=== PATIENT | female | born 1975 | race Two or more races ===

== ENCOUNTER 2024-10-25 08:30 | Outpatient (AMB) | payer BC, SELFPAY ==
[2024-10-25 08:50] VITALS: BP 130/87; PULSE 76; RESP 18; TEMP 36.6; O2SAT 100; BMI 40.4
--- NOTE | 2024-10-25 08:50 | ORTHONT_ITS ---
Vital signs 10/25/24 08:50 Height 1.57 m Height Method Stated Weight 99.564 kg Weight Measurement Method Standing Scale BMI 40.4 BP 130/87 H Blood Pressure Source Automatic Cuff Blood Pressure Location Left Upper Arm Position Sitting Respiration 18 Pulse 76 Pulse Source Monitor Temp 97.8 F Temp Source Temporal Artery Scan Pulse Oximetry (%) 100 Oxygen Delivery Method Room Air Med/Allergies Allergies & Medications Allergies NKA* Allergy (Uncoded 10/25/24 08:51) Medication Reconciliation atorvastatin 40 mg tablet 40 mg PO QDAY 10/09/23 [History Confirmed 10/25/24] meloxicam 7.5 mg tablet 7.5 mg PO BID #45 tabs 10/09/23 [Rx Confirmed 10/25/24] omeprazole 20 mg capsule,delayed release 20 mg PO QDAY 10/09/23 [History Confirmed 10/25/24] meloxicam 7.5 mg tablet 7.5 mg PO QDAY #45 tabs 10/23/23 [Rx Confirmed 10/25/24] meloxicam 7.5 mg tablet 7.5 mg PO QDAY #45 tabs 07/07/24 [Rx Confirmed 10/25/24] Exam Exam Patient is in no acute distress and is cooperative with the examination today. Breathing is nonlabored. Patient has a normal mood and affect. The patient has a gait that is [nonantalgic] Bilateral extremities were evaluated and demonstrates sensation intact to light touch. Palpable pedal pulses are present. No significant edema is present. Bilateral hips were examined. The patient has no pain with log roll of the hips. Internal rotation to 30 degrees and external rotation to 30 degrees is painless. Negative FADIR. Right knee was examined today. The right knee is in reasonable alignment. Range of motion from 0-120 degrees. Knee is stable to varus and valgus as well as AP translation with <5mm. Patient has a negative McMurrays. There is no pain with patellofemoral compression and no crepitus noted. The knee is nontender to palpation. Left knee was examined today. The left knee is in [neutral] alignment. Range of motion from [0-120] degrees. Knee is stable to varus and valgus as well as AP translation with <5mm. Patient has a [negative] McMurrays. There is [no] pain with patellofemoral compression and [no] crepitus noted. The knee is tender to palpation over the Pez anserine tendons An MRI was reviewed by me. This demonstrates a posterior horn of the medial meniscus tear. It appears to be horizontal and degenerative X-rays demonstrate moderate to severe osteoarthritis of the left knee. There is joint space narrowing present Assessment and Plan Problem List (1) Complex tear of meniscus of left knee: Status: Acute Plan: Patient is a 48-year-old female with medial knee pain. We will do a cortisone injection today. We also discussed weight loss Recommend knee cortisone injection as patient would like to proceed with conservative treatment at this time. The risks and benefits of the procedure were reviewed with the patient and patient gave verbal consent to continue with the procedure. Procedure: performed by Dr. Tran Using sterile technique the left knee was thoroughly prepped with alcohol, and approximately 1 cc of Kenalog 40 mg/mL and 4 cc of 1% lidocaine was injected without resistance into the medial tibial femoral joint space. The patient tolerated the procedure. (2) Pain in left knee: Status: Acute Office Procedures GNS Level of Care Nursing/Assessment Patient Status: Established Patient Nursing Assessment/Reassesment: Medication Reconciliation, Update PMH in EMR and Vital Signs Coordination of Care: Complex Care and Chronic Disease 1-5, Education Complex Pt/Fam, Consent,records obtained, informed consent, Results/Orders obtained and Staff clarify orders Established Patient Charge Established Patient Point Assignment: 95 Established Patient Point Charge: EP Level 3 (80-115) MA Intake Visit Data Collection New Patient or Established: Established Patient (seen at [facility] within 3 years) Reason for Visit:: LEFT KNEE INJECTION F/U Seen by Clinical Staff ONLY (RN/MA): No Quality Assurance Group 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 She has a degenerative meniscal tear. We discussed nonoperative and operative options. We discussed weight loss in Detail. The last injections of lasted more than 3 months and she would like a new one today Pain Pain level (0-10): 5 Pain duration: CONSTANT Pain location: inside (medial) Pain quality: aching Pain timing: increases with activity Associated signs & symptoms: none Ambulatory data Ambulatory device: none Treatments Number of previous injections: 1 Improvement with previous injections: Yes Improvement with PT: No Improvement with NSAIDS: no Review of Systems Review of Systems: All systems negative unless otherwise noted in HPI.
== END 2024-10-25 10:17 | disposition home or self-care (01) ==
LOC: HODSRG 08:30
PROVIDERS: PCP Family Medicine; Referring Provider Family Medicine; Supervising Provider Orthopaedic Surgery Adult Reconstructive Orthopaedic Surgery; Visit Provider Orthopaedic Surgery Adult Reconstructive Orthopaedic Surgery
DX: S83.232D Complex tear of medial meniscus, current injury, left knee, subsequent encounter (principal); X58.XXXD Exposure to other specified factors, subsequent encounter; M25.562 Pain in left knee; M17.12 Unilateral primary osteoarthritis, left knee
CPT/HCPCS: 20610; 99213; J3301; J3490; G0463

== ENCOUNTER 2025-01-05 08:43 | Outpatient (AMB) | payer BC, SELFPAY ==
[2025-01-05 09:13] VITALS: BP 155/84; PULSE 90; RESP 18; TEMP 36.8; O2SAT 99; BMI 39.1
--- NOTE | 2025-01-05 09:13 | ORTHONT_ITS ---
Vital signs 01/05/25 09:13 Height 1.57 m Height Method Stated Weight 96.417 kg Weight Measurement Method Standing Scale BMI 39.1 BP 155/84 H Blood Pressure Source Automatic Cuff Blood Pressure Location Right Upper Arm Position Sitting Respiration 18 Pulse 90 Pulse Source Monitor Temp 98.2 F Temp Source Oral Pulse Oximetry (%) 99 Oxygen Delivery Method Room Air Med/Allergies Allergies & Medications Allergies NKA* Allergy (Uncoded 01/05/25 09:14) Medication Reconciliation atorvastatin 40 mg tablet 40 mg PO QDAY 10/09/23 [History Confirmed 01/05/25] meloxicam 7.5 mg tablet 7.5 mg PO BID #45 tabs 10/09/23 [Rx Confirmed 01/05/25] omeprazole 20 mg capsule,delayed release 20 mg PO QDAY 10/09/23 [History Confirmed 01/05/25] meloxicam 7.5 mg tablet 7.5 mg PO QDAY #45 tabs 10/23/23 [Rx Confirmed 01/05/25] meloxicam 7.5 mg tablet 7.5 mg PO QDAY #45 tabs 07/07/24 [Rx Confirmed 01/05/25] bupropion HCl 75 mg tablet 75 mg PO TID 01/05/25 [History Confirmed 01/05/25] naltrexone 50 mg tablet 50 mg PO QDAY 01/05/25 [History Confirmed 01/05/25] naproxen 500 mg tablet 500 mg PO BID PRN pain #60 tabs 01/05/25 [Rx] Exam Exam Patient is in no acute distress and is cooperative with the examination today. Breathing is nonlabored. Patient has a normal mood and affect. The patient has a gait that is [nonantalgic] Bilateral extremities were evaluated and demonstrates sensation intact to light touch. Palpable pedal pulses are present. No significant edema is present. Bilateral hips were examined. The patient has no pain with log roll of the hips. Internal rotation to 30 degrees and external rotation to 30 degrees is painless. Negative FADIR. Right knee was examined today. The right knee is in reasonable alignment. Range of motion from 0-120 degrees. Knee is stable to varus and valgus as well as AP translation with <5mm. Patient has a negative McMurrays. There is no pain with patellofemoral compression and no crepitus noted. The knee is nontender to palpation. Left knee was examined today. The left knee is in [neutral] alignment. Range of motion from [0-120] degrees. Knee is stable to varus and valgus as well as AP translation with <5mm. Patient has a [negative] McMurrays. There is [no] pain with patellofemoral compression and [no] crepitus noted. The knee is tender to palpation over the Pez anserine tendons An MRI was reviewed by me. This demonstrates a posterior horn of the medial meniscus tear. It appears to be horizontal and degenerative X-rays demonstrate moderate to severe osteoarthritis of the left knee. There is joint space narrowing present Assessment and Plan Problem List (1) Complex tear of meniscus of left knee: Status: Acute Plan: Patient is a 49-year-old female with a degenerative meniscal tear and moderate arthritis at least. She also has patella tendinitis. We discussed anti- inflammatories as well as a home exercise program. We also discussed the risks and benefits of surgery. (2) Pain in left knee: Status: Acute Office Procedures GNS Level of Care Nursing/Assessment Patient Status: Established Patient Nursing Assessment/Reassesment: Medication Reconciliation, Update PMH in EMR and Vital Signs Coordination of Care: Complex Care and Chronic Disease 1-5, Education Complex Pt/Fam, Consent,records obtained, informed consent, Results/Orders obtained and Staff clarify orders Established Patient Charge Established Patient Point Assignment: 95 Established Patient Point Charge: EP Level 3 (80-115) MA Intake Visit Data Collection New Patient or Established: Established Patient (seen at [facility] within 3 years) Reason for Visit:: 3 MONTH KNEE INJECTION FOLLOW UP Seen by Clinical Staff ONLY (RN/MA): No Verbal consent obtained for Telemed visit?: No Press Operator Automatic Required: No PCP or OBGYN visit in last 3 months: Yes Hx Now: No Do You Feel Safe at Home: Yes Authorities Contacted: N/A Questionairres Past Medical History Past Medical History Have you ever been diagnosed with any of the following: Respiratory Problems Smoking: No Smoking Cessation Counseling: No Smoking Exposure: No Subjective Visit Visit for: follow up visit and knee Immunization / Flu Flu Vaccine in the Last 12 Months: No Flu Vaccine Exclusion Criteria: No Exclusion Criteria and Already Received History of Present Illness Chief complaint: 3 MONTH FOLLOW UP KNEE INJECTION Pt is a 49-year-old female With left knee pain and left knee arthritis. She has a degenerative meniscal tear. We discussed nonoperative and operative options. We discussed weight loss in Detail. She does not want any injections today. She would like to try different anti-inflammatory we discussed home exercise program versus physical therapy. Pain Pain level (0-10): 6 Pain duration: ALL DAY Pain location: inside (medial), outside (lateral) and anterior Pain quality: sharp, dull and aching Pain timing: increases with activity Associated signs & symptoms: none Ambulatory data Ambulatory device: none Treatments Number of previous injections: 2 Improvement with previous injections: Yes Improvement with PT: No Improvement with NSAIDS: no Review of Systems Review of Systems: All systems negative unless otherwise noted in HPI.
== END 2025-01-05 09:58 | disposition home or self-care (01) ==
LOC: HODSRG 08:43
PROVIDERS: PCP Family Medicine; Referring Provider Family Medicine; Supervising Provider Orthopaedic Surgery Adult Reconstructive Orthopaedic Surgery; Visit Provider Orthopaedic Surgery Adult Reconstructive Orthopaedic Surgery
DX: S83.232D Complex tear of medial meniscus, current injury, left knee, subsequent encounter (principal); X58.XXXD Exposure to other specified factors, subsequent encounter; M17.12 Unilateral primary osteoarthritis, left knee; M25.562 Pain in left knee
CPT/HCPCS: 99213; G0463

== ENCOUNTER 2025-02-24 08:30 | Outpatient (AMB) | payer BC, SELFPAY ==
--- NOTE | 2025-02-24 08:46 | PD.ORTHCLVIS ---
Vital signs 02/24/25 08:47 Height 1.57 m Height Method Stated Weight 94.035 kg Weight Measurement Method Standing Scale BMI 38.1 BP 143/83 H Blood Pressure Source Automatic Cuff Blood Pressure Location Left Upper Arm Position Sitting Respiration 18 Pulse 80 Pulse Source Monitor Temp 95.3 F L Temp Source Temporal Artery Scan Pulse Oximetry (%) 98 Oxygen Delivery Method Room Air Med/Allergies Allergies & Medications Allergies NKA* Allergy (Uncoded 02/24/25 08:50) Medication Reconciliation atorvastatin 40 mg tablet 40 mg PO QDAY 10/09/23 [History Confirmed 02/24/25] meloxicam 7.5 mg tablet 7.5 mg PO BID #45 tabs 10/09/23 [Rx Confirmed 02/24/25] omeprazole 20 mg capsule,delayed release 20 mg PO QDAY 10/09/23 [History Confirmed 02/24/25] meloxicam 7.5 mg tablet 7.5 mg PO QDAY #45 tabs 10/23/23 [Rx Confirmed 02/24/25] meloxicam 7.5 mg tablet 7.5 mg PO QDAY #45 tabs 07/07/24 [Rx Confirmed 02/24/25] bupropion HCl 75 mg tablet 75 mg PO TID 01/05/25 [History Confirmed 02/24/25] naltrexone 50 mg tablet 50 mg PO QDAY 01/05/25 [History Confirmed 02/24/25] naproxen 500 mg tablet 500 mg PO BID PRN pain #60 tabs 01/05/25 [Rx Confirmed 02/24/25] Exam Exam Patient is in no acute distress and is cooperative with the examination today. Breathing is nonlabored. Patient has a normal mood and affect. The patient has a gait that is [nonantalgic] Bilateral extremities were evaluated and demonstrates sensation intact to light touch. Palpable pedal pulses are present. No significant edema is present. Bilateral hips were examined. The patient has no pain with log roll of the hips. Internal rotation to 30 degrees and external rotation to 30 degrees is painless. Negative FADIR. Right knee was examined today. The right knee is in reasonable alignment. Range of motion from 0-120 degrees. Knee is stable to varus and valgus as well as AP translation with <5mm. Patient has a negative McMurrays. There is no pain with patellofemoral compression and no crepitus noted. The knee is nontender to palpation. Left knee was examined today. The left knee is in [neutral] alignment. Range of motion from [0-120] degrees. Knee is stable to varus and valgus as well as AP translation with <5mm. Patient has a [negative] McMurrays. There is [no] pain with patellofemoral compression and [no] crepitus noted. The knee is tender to palpation over the Pez anserine tendons An MRI was reviewed by me. This demonstrates a posterior horn of the medial meniscus tear. It appears to be horizontal and degenerative X-rays demonstrate moderate to severe osteoarthritis of the left knee. There is joint space narrowing present Assessment and Plan Problem List (1) Complex tear of meniscus of left knee: Status: Acute Plan: Patient is a 49-year-old female with a degenerative meniscal tear and Moderate to severe arthritis more prominent on the tunnel view. I discussed with her that there are several options. We discussed total knee replacement versus partial knee replacement as well as hyaluronic acid injections. She is currently getting worked up for her liver. We would need to get authorization for the gel injection but I think this is a reasonable option given that she has tried cortisone and is still looking for other options before surgery (2) Pain in left knee: Status: Acute Office Procedures GNS Level of Care Nursing/Assessment Patient Status: Established Patient Nursing Assessment/Reassesment: Medication Reconciliation, Update PMH in EMR and Vital Signs Coordination of Care: Complex Care and Chronic Disease 1-5, Education Complex Pt/Fam, Consent,records obtained, informed consent, Results/Orders obtained and Staff clarify orders Established Patient Charge Established Patient Point Assignment: 95 Established Patient Point Charge: EP Level 3 (80-115) MA Intake Visit Data Collection New Patient or Established: Established Patient (seen at 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: No PCP or OBGYN visit in last 3 months: Yes Hx Now: No Do You Feel Safe at Home: Yes Authorities Contacted: N/A Questionairres Past Medical History Past Medical History Have you ever been diagnosed with any of the following: Respiratory Problems Smoking: No Smoking Cessation Counseling: No Smoking Exposure: No Subjective Visit Visit for: follow up visit and knee (LEFT KNEE ) Immunization / Flu Flu Vaccine in the Last 12 Months: No Flu Vaccine Exclusion Criteria: Refused by Patient History of Present Illness Chief complaint: 3 MONTH FOLLOW UP KNEE INJECTION Pt is a 49-year-old female With left knee pain and left knee arthritis. She has a degenerative meniscal tear. We discussed nonoperative and operative options. We discussed weight loss in Detail. She does not want any injections today. We have tried to anti-inflammatories and has not provided considerable pain relief Personal History Red flag PMH: none Pain Pain level (0-10): 5 Pain duration: 1 YEAR Pain location: anterior Pain quality: sharp and dull Pain timing: night and increases with activity Associated signs & symptoms: weakness and stiffness Ambulatory data Ambulatory device: none Walking distance (minutes): 1 Treatments Number of previous injections: 4 Improvement with previous injections: No Number of Physical Therapy sessions: 0 Improvement with PT: No Improvement with NSAIDS: n/a Review of Systems Review of Systems: All systems negative unless otherwise noted in HPI.
[2025-02-24 08:47] VITALS: BP 143/83; PULSE 80; RESP 18; TEMP 35.2; O2SAT 98; BMI 38.1
--- NOTE | 2025-02-24 08:58 | XR_ITS ---
Examination: Bilateral knees single view PA lateral axial left knee 3 views TECHNIQUE: Bilateral AP knees standing single view Standing PA left knee flexion, standing lateral left knee, axial left knee 3 views total 4 views Date and time: February 24, 2025 at 0915 hours INDICATIONS: Knee pain one year. FINDINGS: Moderate osteopenia. Moderate narrowing medial joint space left knee No patellar dislocation No fracture Mild to moderate narrowing medial joint space right knee IMPRESSION: Moderate narrowing medial joint space left knee
== END 2025-02-24 09:33 | disposition home or self-care (01) ==
LOC: HODSRG 08:30
PROVIDERS: PCP Family Medicine; Referring Provider Family Medicine; Supervising Provider Orthopaedic Surgery Adult Reconstructive Orthopaedic Surgery; Visit Provider Orthopaedic Surgery Adult Reconstructive Orthopaedic Surgery
DX: S83.207D Unspecified tear of unspecified meniscus, current injury, left knee, subsequent encounter (principal); X58.XXXD Exposure to other specified factors, subsequent encounter; M17.12 Unilateral primary osteoarthritis, left knee; M25.562 Pain in left knee
CPT/HCPCS: 73564; 99213; G0463

== ENCOUNTER 2025-03-07 13:29 | Outpatient (AMB) | payer BC, SELFPAY ==
[2025-03-07 13:46] VITALS: BP 138/81; PULSE 92; RESP 19; TEMP 36.8; O2SAT 98; BMI 38.9
--- NOTE | 2025-03-07 13:46 | ORTHONT_ITS ---
Vital signs 03/07/25 13:46 Height 1.57 m Height Method Stated Weight 95.878 kg Weight Measurement Method Standing Scale BMI 38.9 BP 138/81 H Blood Pressure Source Automatic Cuff Blood Pressure Location Left Upper Arm Position Sitting Respiration 19 Pulse 92 Pulse Source Monitor Temp 98.3 F Temp Source Temporal Artery Scan Pulse Oximetry (%) 98 Oxygen Delivery Method Room Air Med/Allergies Allergies & Medications Allergies NKA* Allergy (Uncoded 03/07/25 13:46) Medication Reconciliation atorvastatin 40 mg tablet 40 mg PO QDAY 10/09/23 [History Confirmed 03/07/25] omeprazole 20 mg capsule,delayed release 20 mg PO QDAY 10/09/23 [History Confirmed 03/07/25] meloxicam 7.5 mg tablet 7.5 mg PO QDAY #45 tabs 10/23/23 [Rx Confirmed 03/07/25] meloxicam 7.5 mg tablet 7.5 mg PO QDAY #45 tabs 07/07/24 [Rx Confirmed 03/07/25] bupropion HCl 75 mg tablet 75 mg PO TID 01/05/25 [History Confirmed 03/07/25] naltrexone 50 mg tablet 50 mg PO QDAY 01/05/25 [History Confirmed 03/07/25] naproxen 500 mg tablet 500 mg PO BID PRN pain #60 tabs 01/05/25 [Rx Confirmed 03/07/25] Exam Exam Patient is in no acute distress and is cooperative with the examination today. Breathing is nonlabored. Patient has a normal mood and affect. The patient has a gait that is [nonantalgic] Bilateral extremities were evaluated and demonstrates sensation intact to light touch. Palpable pedal pulses are present. No significant edema is present. Bilateral hips were examined. The patient has no pain with log roll of the hips. Internal rotation to 30 degrees and external rotation to 30 degrees is painless. Negative FADIR. Right knee was examined today. The right knee is in reasonable alignment. Range of motion from 0-120 degrees. Knee is stable to varus and valgus as well as AP translation with <5mm. Patient has a negative McMurrays. There is no pain with patellofemoral compression and no crepitus noted. The knee is nontender to palpation. Left knee was examined today. The left knee is in [neutral] alignment. Range of motion from [0-120] degrees. Knee is stable to varus and valgus as well as AP translation with <5mm. Patient has a [negative] McMurrays. There is [no] pain with patellofemoral compression and [no] crepitus noted. The knee is tender to palpation over the Pez anserine tendons An MRI was reviewed by me. This demonstrates a posterior horn of the medial meniscus tear. It appears to be horizontal and degenerative X-rays demonstrate moderate to severe osteoarthritis of the left knee. There is joint space narrowing present Assessment and Plan Problem List (1) Complex tear of meniscus of left knee: Status: Acute Plan: Patient is a 49-year-old female with a degenerative meniscal tear and Moderate to severe arthritis more prominent on the tunnel view. I discussed with her that there are several options. We discussed total knee replacement versus partial knee replacement as well as hyaluronic acid injections. She would like to get a hyaluronic acid injection today After an alcohol prep, the entire syringe of Synvisc 1 was injected into the left knee. The patient tolerated the procedure well. (2) Pain in left knee: Status: Acute Office Procedures GNS Level of Care Nursing/Assessment Patient Status: Established Patient Nursing Assessment/Reassesment: Medication Reconciliation, Update PMH in EMR and Vital Signs Coordination of Care: Complex Care and Chronic Disease 1-5, Education Complex Pt/Fam, Consent,records obtained, informed consent, Results/Orders obtained and Staff clarify orders Established Patient Charge Established Patient Point Assignment: 95 Established Patient Point Charge: EP Level 3 (80-115) Surgical Proc/IM SQ injection Major Surgical Procedure: Yes (KNEE INJECTION ) Medication Given Medication Given Medication Given: Yes Documented Dose Given: 6 Route: Infiitration Office Meds Hyalgan 10 mg/mL intra-articular syringe Performing Provider: Royce Tran MD Performing Location: [facility] Administered by: Royce Tran MD on 03/07/25 15:43 Dose Route Admin Location Dispensed Lot Number Expiration Date [facility] Tacker Off 20 mg intra-articular 2 mL [id number] 02/18/27 [address]-3 MA Intake Visit Data Collection New Patient or Established: Established Patient (seen at [facility] within 3 years) Reason for Visit:: LEFT KNEE FOLLOW UP Seen by Clinical Staff ONLY (RN/MA): No PCP or OBGYN visit in last 3 months: Yes Hx Now: No Do You Feel Safe at Home: Yes Authorities Contacted: N/A Questionairres Past Medical History Past Medical History Have you ever been diagnosed with any of the following: Respiratory Problems Smoking: No Smoking Cessation Counseling: No Smoking Exposure: No Subjective Visit Visit for: follow up visit and knee Immunization / Flu Flu Vaccine in the Last 12 Months: No Flu Vaccine Exclusion Criteria: No Exclusion Criteria History of Present Illness Chief complaint: 3 MONTH FOLLOW UP KNEE INJECTION Pt is a 49-year-old female With left knee pain and left knee arthritis. She has a degenerative meniscal tear. We discussed nonoperative and operative options. We discussed weight loss in Detail. She does not want any injections today. We have tried to anti-inflammatories and has not provided considerable pain relief Personal History Red flag PMH: none Pain Pain level (0-10): 7 Pain duration: CONSTANT Pain location: inside (medial) and anterior Pain quality: sharp, dull and aching Pain timing: night, increases with activity and stairs Associated signs & symptoms: numbness Ambulatory data Ambulatory device: none Walking distance (minutes): 1 Treatments Number of previous injections: 4 Improvement with previous injections: No Number of Physical Therapy sessions: 0 Improvement with PT: No Improvement with NSAIDS: no Review of Systems Review of Systems: All systems negative unless otherwise noted in HPI.
== END 2025-03-07 14:20 | disposition home or self-care (01) ==
PROVIDERS: PCP Family Medicine; Referring Provider Family Medicine; Supervising Provider Orthopaedic Surgery Adult Reconstructive Orthopaedic Surgery; Visit Provider Orthopaedic Surgery Adult Reconstructive Orthopaedic Surgery
DX: S83.232D Complex tear of medial meniscus, current injury, left knee, subsequent encounter (principal); X58.XXXD Exposure to other specified factors, subsequent encounter; M25.562 Pain in left knee; M17.12 Unilateral primary osteoarthritis, left knee
CPT/HCPCS: 20610; 99213; G0463; J7325

== ENCOUNTER 2025-05-09 13:42 | Outpatient (AMB) | payer BC, SELFPAY ==
--- NOTE | 2025-05-09 14:08 | ORTHONT_ITS ---
Vital signs 05/09/25 14:13 Height 1.57 m Height Method Measured Weight 95.368 kg Weight Measurement Method Standing Scale BMI 38.7 BP 129/76 Blood Pressure Source Automatic Cuff Blood Pressure Location Left Upper Arm Position Sitting Respiration 20 Pulse 86 Pulse Source Monitor Temp 98.5 F Temp Source Temporal Artery Scan Pulse Oximetry (%) 97 Oxygen Delivery Method Room Air Med/Allergies Allergies & Medications Allergies NKA* Allergy (Uncoded 05/09/25 14:14) Medication Reconciliation atorvastatin 40 mg tablet 40 mg PO QDAY 10/09/23 [History Confirmed 05/09/25] omeprazole 20 mg capsule,delayed release 20 mg PO QDAY 10/09/23 [History Confirmed 05/09/25] meloxicam 7.5 mg tablet 7.5 mg PO QDAY #45 tabs 10/23/23 [Rx Confirmed 05/09/25] meloxicam 7.5 mg tablet 7.5 mg PO QDAY #45 tabs 07/07/24 [Rx Confirmed 05/09/25] bupropion HCl 75 mg tablet 75 mg PO TID 01/05/25 [History Confirmed 05/09/25] naltrexone 50 mg tablet 50 mg PO QDAY 01/05/25 [History Confirmed 05/09/25] naproxen 500 mg tablet 500 mg PO BID PRN pain #60 tabs 01/05/25 [Rx Confirmed 05/09/25] celecoxib 200 mg capsule 200 mg PO BID #90 caps 05/09/25 [Rx] Exam Exam Patient is in no acute distress and is cooperative with the examination today. Breathing is nonlabored. Patient has a normal mood and affect. The patient has a gait that is [nonantalgic] Bilateral extremities were evaluated and demonstrates sensation intact to light touch. Palpable pedal pulses are present. No significant edema is present. Bilateral hips were examined. The patient has no pain with log roll of the hips. Internal rotation to 30 degrees and external rotation to 30 degrees is painless. Negative FADIR. Right knee was examined today. The right knee is in reasonable alignment. Range of motion from 0-120 degrees. Knee is stable to varus and valgus as well as AP translation with <5mm. Patient has a negative McMurrays. There is no pain with patellofemoral compression and no crepitus noted. The knee is nontender to palpation. Left knee was examined today. The left knee is in [neutral] alignment. Range of motion from [0-120] degrees. Knee is stable to varus and valgus as well as AP translation with <5mm. Patient has a [negative] McMurrays. There is [no] pain with patellofemoral compression and [no] crepitus noted. The knee is tender to palpation over the Pez anserine tendons An MRI was reviewed by me. This demonstrates a posterior horn of the medial meniscus tear. It appears to be horizontal and degenerative X-rays demonstrate moderate to severe osteoarthritis of the left knee. There is joint space narrowing present Assessment and Plan Problem List (1) Pain in left knee: Status: Acute (2) Complex tear of meniscus of left knee: Status: Acute Plan: Patient is a 49-year-old female with a degenerative meniscal tear and Moderate to severe arthritis more prominent on the tunnel view. I discussed with her that there are several options. Recommend knee cortisone injection as patient would like to proceed with conservative treatment at this time. The risks and benefits of the procedure were reviewed with the patient and patient gave verbal consent to continue with the procedure. Procedure: performed by Dr. Tran Using sterile technique the left knee was thoroughly prepped with alcohol, and approximately 1 cc of Depo-Medrol 80mg/mL and 4 cc of 0.2% ropivacaine was injected without resistance into the medial tibial femoral joint space. The patient tolerated the procedure. Office Procedures GNS Level of Care Nursing/Assessment Patient Status: Established Patient Nursing Assessment/Reassesment: Medication Reconciliation, Update PMH in EMR and Vital Signs Coordination of Care: Complex Care and Chronic Disease 1-5, Education Complex Pt/Fam, Consent,records obtained, informed consent, Results/Orders obtained and Staff clarify orders Established Patient Charge Established Patient Point Assignment: 95 Established Patient Point Charge: EP Level 3 (80-115) Surgical Proc/IM SQ injection Major Surgical Procedure: Yes (LERT KNEE INJECTION) Medication Given Medication Given Medication Given: Yes Documented Dose Given: 1 Route: Infiitration Medication Given Medication Given Medication Given: No Medication Given Medication Given Medication Given: Yes Documented Dose Given: 4 Route: Infiitration Medication Given Medication Given Medication Given: No Office Meds methylprednisolone acetate 80 mg/mL suspension for injection Performing Provider: Royce Tran MD Performing Location: [facility] Administered by: Royce Tran MD on 05/09/25 14:50 Dose Route Admin Location Dispensed Lot Number Expiration Date [facility] [employer] 80 mg intra-articular 1 mL [id number] 02/17/27 [address]-6 [employer] methylprednisolone acetate 80 mg/mL suspension for injection Performing Provider: Royce Tran MD Performing Location: [facility] Documented (not given) by: Rubia Viera on 05/09/25 14:50 Dose Route Admin Location Dispensed Lot Number Expiration Date [facility] [employer] 80 mg intra-articular mL ropivacaine (PF) 2 mg/mL (0.2 %) injection solution Performing Provider: Royce Tran MD Performing Location: [facility] Administered by: Royce Tran MD on 05/09/25 14:50 Dose Route Admin Location Dispensed Lot Number Expiration Date [place] [employer] 20 mL Infiltration 20 mL [id number] 08/20/26 86639-925-89 [facility] ropivacaine (PF) 2 mg/mL (0.2 %) injection solution Performing Provider: Royce Tran MD Performing Location: [facility] Documented (not given) by: Rubia Viera on 05/09/25 14:50 Dose Route Admin Location Dispensed Lot Number Expiration Date [facility] [employer] 20 mL Infiltration mL MA Intake Visit Data Collection New Patient or Established: Established Patient (seen at [facility] within 3 years) Reason for Visit:: LEFT KNEE FOLLOW UP Seen by Clinical Staff ONLY (RN/MA): No 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 PCP or OBGYN visit in last 3 months: Yes Hx Now: No Do You Feel Safe at Home: Yes Authorities Contacted: N/A Questionairres Past Medical History Past Medical History Have you ever been diagnosed with any of the following: Respiratory Problems Smoking: No Smoking Cessation Counseling: No Smoking Exposure: No Subjective Visit Visit for: follow up visit and knee Immunization / Flu Flu Vaccine in the Last 12 Months: No Flu Vaccine Exclusion Criteria: No Exclusion Criteria History of Present Illness Chief complaint: 3 MONTH FOLLOW UP KNEE INJECTION Pt is a 49-year-old female With left knee pain and left knee arthritis. She has a degenerative meniscal tear. We discussed nonoperative and operative options. We discussed weight loss in Detail. she would like to try a cortisone injection Personal History Red flag PMH: none Pain Pain level (0-10): 7 Pain duration: CONSTANT Pain location: inside (medial) and anterior Pain quality: sharp, dull and aching Pain timing: night, increases with activity and stairs Associated signs & symptoms: numbness Ambulatory data Ambulatory device: none Walking distance (minutes): 1 Treatments Number of previous injections: 4 Improvement with previous injections: No Number of Physical Therapy sessions: 0 Improvement with PT: No Improvement with NSAIDS: no Review of Systems Review of Systems: All systems negative unless otherwise noted in HPI.
[2025-05-09 14:13] VITALS: BP 129/76; PULSE 86; RESP 20; TEMP 36.9; O2SAT 97; BMI 38.7
== END 2025-05-09 14:57 | disposition home or self-care (01) ==
PROVIDERS: PCP Family Medicine; Referring Provider Family Medicine; Supervising Provider Orthopaedic Surgery Adult Reconstructive Orthopaedic Surgery; Visit Provider Orthopaedic Surgery Adult Reconstructive Orthopaedic Surgery
DX: M25.562 Pain in left knee (principal); S83.204D Other tear of unspecified meniscus, current injury, left knee, subsequent encounter; X58.XXXD Exposure to other specified factors, subsequent encounter; M17.12 Unilateral primary osteoarthritis, left knee
CPT/HCPCS: 20610; 99213; J1010; J2795; G0463

== ENCOUNTER → 2025-05-23 | Outpatient (CLI) | payer BC, SELFPAY ==
--- NOTE | 2025-05-23 13:30 | XR_ITS ---
Examination: Screening digital mammography, bilateral Computer aided detection 3-D breast Tomosynthesis, bilateral Date and time of exam: May 23, 2025 1306 hours, no priors Indication: Screening Technique: Nonmagnified MLO, CC views of the breasts to been obtained, reconstructed from 3-D Tomosynthesis images. R2 computer aided detection program utilized for evaluation of suspicious masses and/or abnormal calcifications. 3-D Tomosynthesis images obtained. Findings: The breasts are heterogeneously dense, which may obscure small masses Bilateral skin lesions Benign calcifications No suspicious masses Impression: BI-RADS category II: Benign Findings. Recommend 1 year follow-up mammogram.
== END | disposition home or self-care (01) ==
PROVIDERS: PCP Family Medicine; Referring Provider Family Medicine; Visit Provider Family Medicine
DX: Z12.31 Encounter for screening mammogram for malignant neoplasm of breast (principal); R92.323 Mammographic fibroglandular density, bilateral breasts; R92.1 Mammographic calcification found on diagnostic imaging of breast
CPT/HCPCS: 77063; 77067

== ENCOUNTER 2025-06-30 09:50 | Day surgery (SDC) | payer BC, SELFPAY ==
[2025-06-29 13:56] VITALS: BMI 38.4
[2025-06-30] VITALS (9 sets, daily range): BP systolic 129–163; BP diastolic 74–93; PULSE 60–78; RESP 12–18; TEMP 36.6–37.2; O2SAT 95–100; BMI 36.7
[2025-06-30] MEDS: SODIUM CHLORIDE 0.9% 500 ML 500 ML 20 ML IV (11:50)
[2025-06-30] MEDS: fentaNYL CIT INJ 50 mCg/ML AMP 2ML (ASD USE ONLY) IVP (12:03)
[2025-06-30] MEDS: MIDAZOLAM INJ 1 MG/ML VIAL 2 ML (ASD USE ONLY) 2 MG IVP (12:03)
== END 2025-06-30 12:40 | disposition home or self-care (01) ==
PROVIDERS: PCP Family Medicine; Referring Provider Specialist; Visit Provider Specialist
PROC: 0DBE8ZX Excision of Large Intestine, Via Natural or Artificial Opening Endoscopic, Diagnostic (ICD-10-PCS; CPT 45380; principal; 2025-06-30 12:30)
DX: Z12.11 Encounter for screening for malignant neoplasm of colon (principal); K64.1 Second degree hemorrhoids; K57.30 Diverticulosis of large intestine without perforation or abscess without bleeding
CPT/HCPCS: 45378; 81025; A4649; J1200; J2250; J3010; J7999

== ENCOUNTER 2025-07-18 10:24 | Outpatient (AMB) | payer BC, SELFPAY ==
--- NOTE | 2025-07-18 10:52 | ORTHONT_ITS ---
Vital signs 07/18/25 10:53 Height 1.57 m Height Method Stated Weight 94.546 kg Weight Measurement Method Standing Scale BMI 38.1 BP 128/81 Blood Pressure Source Automatic Cuff Blood Pressure Location Left Upper Arm Position Sitting Respiration 18 Pulse 85 Pulse Source Monitor Temp 98.1 F Temp Source Temporal Artery Scan Pulse Oximetry (%) 97 Oxygen Delivery Method Room Air Med/Allergies Allergies & Medications Allergies No Known Allergies Allergy (Verified 07/18/25 10:54) Medication Reconciliation omeprazole 20 mg capsule,delayed release 20 mg PO QDAY 10/09/23 [History Confirmed 07/18/25] atorvastatin 20 mg tablet 20 mg PO QDAY 06/29/25 [History Confirmed 07/18/25] Exam Exam Patient is in no acute distress and is cooperative with the examination today. Breathing is nonlabored. Patient has a normal mood and affect. The patient has a gait that is [nonantalgic] Bilateral extremities were evaluated and demonstrates sensation intact to light touch. Palpable pedal pulses are present. No significant edema is present. Bilateral hips were examined. The patient has no pain with log roll of the hips. Internal rotation to 30 degrees and external rotation to 30 degrees is painless. Negative FADIR. Right knee was examined today. The right knee is in reasonable alignment. Range of motion from 0-120 degrees. Knee is stable to varus and valgus as well as AP translation with <5mm. Patient has a negative McMurrays. There is no pain with patellofemoral compression and no crepitus noted. The knee is nontender to palpa tion. Left knee was examined today. The left knee is in [neutral] alignment. Range of motion from [0-120] degrees. Knee is stable to varus and valgus as well as AP translation with <5mm. Patient has a [negative] McMurrays. There is [no] pain with patellofemoral compression and [no] crepitus noted. The knee is tender to palpation over the Pez anserine tendons An MRI was reviewed by me. This demonstrates a posterior horn of the medial meniscus tear. It appears to be horizontal and degenerative X-rays demonstrate moderate to severe osteoarthritis of the left knee. There is joint space narrowing present Assessment and Plan Problem List (1) Pain in left knee: Status: Acute (2) Complex tear of meniscus of left knee: Status: Acute Plan: Patient is a 49-year-old female with a degenerative meniscal tear and Moderate to severe arthritis more prominent on the tunnel view. I discussed with her that there are several options. She has tried multiple injections on the left knee and has failed conservative treatment. We discussed that a total knee replacement is a reasonable option versus a partial knee replacement. We discussed that we can aim for a partial knee replacement but it is possible that she will need a total knee replacement intraoperatively. The risks and benefits of surgery discussed in great detail with the patient Lifestyle modifications, such as weight management, were discussed to support recovery and long-term joint health. The nature and purpose of the partial versus total knee replacement, alternative method(s) of treatment, the material risks involved, and the possibility of complications were fully explained to the patient. The patient does NOT have any of the following contraindications to a partial or total knee arthroplasty: - Active infection of the knee joint, OR - Active systemic bacteremia, OR - Active skin infection or open wound at surgical site, OR - Neuropathic arthritis, OR - Severe, rapidly progressive neurological disease, OR - Severe medical condition that makes risks of surgery outweigh the potential benefit The patient was told the most common risks and complications associated with a total knee replacement include, but are not limited to: blood clots in the leg, fatal pulmonary embolism, dislocation of the prosthesis, intraoperative and postoperative fractures of the femur or tibia, infection, failure of the prosthesis or grafting materials, complications from anesthesia, reactions to blood transfusions, postoperative leg length inequality, instability of the knee replacement, nerve damage or injury, vascular injury, delayed wound healing, infection, other injury or even . In addition, there are risks associated with anesthesia given during this operation. Also, the patient was told that after undergoing a total knee replacement there may still be persistent pain or disability. The patient was informed that the success of this operation in part depends upon the mechanical devices which are going to be implanted and that these devices can fail or malfunction, and may need to be repaired or replaced and there are no guarantees as to the longevity of this device or its parts and that it or its parts could fail prematurely. The patient was also notified that during the course of surgery, there may be a need to use bone graft from donors, and that any bone graft used will be carefully screened for communicable diseases, including AIDS, hepatitis, Jeremiah-Creutzfeldt, or other diseases, but despite the screening procedures, there is a small chance that they could contract one of these diseases. Finally, the patient was asked to follow completely and fully with all advice and recommended treatments, and that recovery and ultimate outcome are affected by their compliance with recommended treatment. We discussed the risks, benefits and treatment alternatives, and the patient is interested in proceeding with surgery. We will try to set this up as expeditiously as possible. Office Procedures GNS Level of Care Nursing/Assessment Patient Status: Established Patient Nursing Assessment/Reassesment: Medication Reconciliation, Update PMH in EMR and Vital Signs Coordination of Care: Complex Care and Chronic Disease 1-5, Education Complex Pt/Fam, Consent,records obtained, informed consent, Results/Orders obtained and Staff clarify orders Established Patient Charge Established Patient Point Assignment: 95 Established Patient Point Charge: EP Level 3 (80-115) MA Intake Visit Data Collection New Patient or Established: Established Patient (seen at [facility] within 3 years) Reason for Visit:: LEFT KNEE PAIN REQ SX Seen by Clinical Staff ONLY (RN/MA): No 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: No PCP or OBGYN visit in last 3 months: Yes Hx Now: No Do You Feel Safe at Home: Yes Authorities Contacted: N/A Questionairres Past Medical History Past Medical History Have you ever been diagnosed with any of the following: Neurological Problems Seizures: No Cardiology Problems Congestive Heart Failure: No Hypertension: Yes Respiratory Problems Chronic Obstructive Pulmonary Disease (COPD): No Smoking: No Smoking Cessation Counseling: No Smoking Exposure: No Stomache/Intestinal Problems Gastroesophageal Reflux Disease: Yes Genital/Urinary Problems Renal Disease: No Endocrine Problems Diabetes Mellitus Type 1: No Diabetes Mellitus Type 2: Yes Other Problems Down Syndrome: No Developmental Delay: No Blood Transfusions: No Anesthesia Reactions: No Subjective Visit Visit for: follow up visit and knee (LEFT) Immunization / Flu Flu Vaccine in the Last 12 Months: No Flu Vaccine Exclusion Criteria: No Exclusion Criteria History of Present Illness Chief complaint: 3 MTH L KNEE INJECTION FU REQ SX Freda is a 49-year-old female who is been treated for cervical medial compartment arthritis for quite a time. She has been experiencing persistent pain in her left knee, which she describes as being localized to the inner aspect. Occasionally, she experiences sharp, stabbing pains in the lower part of her leg, which can radiate upwards, causing discomfort throughout her entire leg. She also reports that her right leg has begun to ache, possibly due to compensatory weight-bearing. Despite undergoing numerous treatments, including gel injections, physical therapy sessions, and various medications, her condition has not improved. She expresses a desire to resume an active lifestyle, including playing golf with her . She recalls a recent trip to [place] in 10/2024, during which she experienced significant knee pain after climbing to the top of a castle, which subsequently hindered her ability to walk for the remainder of the trip. She is concerned about her upcoming trip to [place] and her ability to participate in planned activities. Her family has suggested surgical intervention as a potential solution to restore her mobility. Personal History Red flag PMH: none Pain Pain level (0-10): 7 Pain duration: CONSTANT Pain location: inside (medial) and anterior Pain quality: sharp, dull and aching Pain timing: night, increases with activity and stairs Associated signs & symptoms: numbness Ambulatory data Ambulatory device: none Walking distance (minutes): 1 Treatments Number of previous injections: 4 Improvement with previous injections: No Number of Physical Therapy sessions: 0 Improvement with PT: No Improvement with NSAIDS: no Review of Systems Review of Systems: All systems negative unless otherwise noted in HPI.
[2025-07-18 10:53] VITALS: BP 128/81; PULSE 85; RESP 18; TEMP 36.7; O2SAT 97; BMI 38.1
== END 2025-07-18 11:15 | disposition home or self-care (01) ==
PROVIDERS: PCP Family Medicine; Referring Provider Family Medicine; Supervising Provider Orthopaedic Surgery Adult Reconstructive Orthopaedic Surgery; Visit Provider Orthopaedic Surgery Adult Reconstructive Orthopaedic Surgery
DX: M25.562 Pain in left knee (principal); S83.207D Unspecified tear of unspecified meniscus, current injury, left knee, subsequent encounter; X58.XXXD Exposure to other specified factors, subsequent encounter; I10 Essential (primary) hypertension
CPT/HCPCS: 99213; G0463

== ENCOUNTER → 2025-07-18 | Outpatient (CLI) | payer BC, SELFPAY ==
--- NOTE | 2025-07-18 14:14 | EKG_ITS ---
[facility] Test Date: 2025-07-18 Pat Name: YANI CHARLES Department: Room: - Gender: Female Composition Mixer: [id number] : [id number] Requested By: Rai Mccall Order Number: [id number] Reading MD: Rai Mccall Measurements Intervals Cadet Rate: 70 P: 32 VA: 139 QRS: 33 QRSD: 77 T: 34 QT: 402 QTc: 436 Interpretive Statements SINUS RHYTHM MODERATE T-WAVE ABNORMALITY, CONSIDER ANTERIOR ISCHEMIA [-0.1+ mV T WAVE IN V3/V4] No previous ECG available for comparison /store/S0/[id number].pdf
== END | disposition home or self-care (01) ==
LOC: SEKG 14:01
PROVIDERS: PCP Family Medicine; Referring Provider Family Medicine; Visit Provider Family Medicine
DX: Z01.810 Encounter for preprocedural cardiovascular examination (principal); M25.562 Pain in left knee
CPT/HCPCS: 93005

== ENCOUNTER → 2025-08-08 | Outpatient (CLI) | payer BC, SELFPAY ==
--- NOTE | 2025-08-08 15:56 | XR_ITS ---
Examination: CT left lower extremity, without contrast. 2-D sagittal reconstructions. 2-D coronal reconstructions. 3-D reconstructions. Date and time of exam: August 08, 2025, 1544 hours INDICATIONS: Diagnosis primary unilateral osteoarthritis left knee left knee pain 2 years CTDI: vol (mGy): 13.3 DLP: (mGycm): 1005 Technique: Multiple 1.25 mm axial sections of the left lower extremity without intravenous contrast have been obtained. 2-D sagittal and coronal reconstructions have been obtained. 3-D reconstructions have been obtained. Low dose protocols were performed. One or more of the following dose reduction techniques were used; automated exposure control, adjustment of the mA and/or KV according to patient size, use of iterative reconstruction technique. Findings: Moderate osteopenia Mild to moderate narrowing left hip joint No left hip fracture or dislocation Moderate to advanced narrowing medial joint space left knee Moderate narrowing lateral patellofemoral joint No fracture or patellar dislocation No avascular necrosis IMPRESSION: Moderate to advanced narrowing medial joint space left knee Moderate narrowing lateral patellofemoral joint left knee
== END | disposition home or self-care (01) ==
PROVIDERS: PCP Family Medicine; Referring Provider Orthopaedic Surgery Adult Reconstructive Orthopaedic Surgery; Visit Provider Orthopaedic Surgery Adult Reconstructive Orthopaedic Surgery
DX: M25.862 Other specified joint disorders, left knee (principal)
CPT/HCPCS: 73700

== ENCOUNTER 2025-09-12 12:58 | Outpatient (AMB) | payer BC, SELFPAY ==
--- NOTE | 2025-09-12 13:16 | PD.ORTHCLVIS ---
Med/Allergies Allergies & Medications Allergies No Known Allergies Allergy (Verified 07/18/25 10:54) Exam Exam Patient is in no acute distress and is cooperative with the examination today. Breathing is nonlabored. Patient has a normal mood and affect. The patient has a gait that is [nonantalgic] Bilateral extremities were evaluated and demonstrates sensation intact to light touch. Palpable pedal pulses are present. No significant edema is present. Bilateral hips were examined. The patient has no pain with log roll of the hips. Internal rotation to 30 degrees and external rotation to 30 degrees is painless. Negative FADIR. Right knee was examined today. The right knee is in reasonable alignment. Range of motion from 0-120 degrees. Knee is stable to varus and valgus as well as AP translation with <5mm. Patient has a negative McMurrays. There is no pain with patellofemoral compression and no crepitus noted. The knee is nontender to palpation. Left knee was examined today. The left knee is in [neutral] alignment. Range of motion from [0-120] degrees. Knee is stable to varus and valgus as well as AP translation with <5mm. Patient has a [negative] McMurrays. There is [no] pain with patellofemoral compression and [no] crepitus noted. The knee is tender to palpation over the Pez anserine tendons An MRI was reviewed by me. This demonstrates a posterior horn of the medial meniscus tear. It appears to be horizontal and degenerative X-rays demonstrate moderate to severe osteoarthritis of the left knee. There is joint space narrowing present Assessment and Plan Problem List (1) Pain in left knee: Status: Acute (2) Complex tear of meniscus of left knee: Status: Acute Plan: Patient is a 50-year-old female with a degenerative meniscal tear and Moderate to severe medial arthritis more prominent on the tunnel view. I discussed with her that there are several options. She has tried multiple injections on the left knee and has failed conservative treatment. We discussed that a total knee replacement is a reasonable option versus a partial knee replacement. We discussed that we can aim for a partial knee replacement but it is possible that she will need a total knee replacement intraoperatively. The risks and benefits of surgery discussed in great detail with the patient Lifestyle modifications, such as weight management, were discussed to support recovery and long-term joint health. The nature and purpose of the partial versus total knee replacement, alternative method(s) of treatment, the material risks involved, and the possibility of complications were fully explained to the patient. The patient does NOT have any of the following contraindications to a partial or total knee arthroplasty: - Active infection of the knee joint, OR - Active systemic bacteremia, OR - Active skin infection or open wound at surgical site, OR - Neuropathic arthritis, OR - Severe, rapidly progressive neurological disease, OR - Severe medical condition that makes risks of surgery outweigh the potential benefit The patient was told the most common risks and complications associated with a total knee replacement include, but are not limited to: blood clots in the leg, fatal pulmonary embolism, dislocation of the prosthesis, intraoperative and postoperative fractures of the femur or tibia, infection, failure of the prosthesis or grafting materials, complications from anesthesia, reactions to blood transfusions, postoperative leg length inequality, instability of the knee replacement, nerve damage or injury, vascular injury, delayed wound healing, infection, other injury or even . In addition, there are risks associated with anesthesia given during this operation. Also, the patient was told that after undergoing a total knee replacement there may still be persistent pain or disability. The patient was informed that the success of this operation in part depends upon the mechanical devices which are going to be implanted and that these devices can fail or malfunction, and may need to be repaired or replaced and there are no guarantees as to the longevity of this device or its parts and that it or its parts could fail prematurely. The patient was also notified that during the course of surgery, there may be a need to use bone graft from donors, and that any bone graft used will be carefully screened for communicable diseases, including AIDS, hepatitis, Jeremiah-Creutzfeldt, or other diseases, but despite the screening procedures, there is a small chance that they could contract one of these diseases. Finally, the patient was asked to follow completely and fully with all advice and recommended treatments, and that recovery and ultimate outcome are affected by their compliance with recommended treatment. We discussed the risks, benefits and treatment alternatives, and the patient is interested in proceeding with surgery. We will try to set this up as expeditiously as possible. Questionairres Past Medical History Past Medical History Have you ever been diagnosed with any of the following: Neurological Problems Seizures: No Cardiology Problems Congestive Heart Failure: No Hypertension: Yes Respiratory Problems Chronic Obstructive Pulmonary Disease (COPD): No Smoking: No Smoking Cessation Counseling: No Smoking Exposure: No Stomache/Intestinal Problems Gastroesophageal Reflux Disease: Yes Genital/Urinary Problems Renal Disease: No Endocrine Problems Diabetes Mellitus Type 1: No Diabetes Mellitus Type 2: Yes Other Problems Down Syndrome: No Developmental Delay: No Blood Transfusions: No Anesthesia Reactions: No Subjective Visit Visit for: follow up visit and knee (LEFT) Immunization / Flu Flu Vaccine in the Last 12 Months: No Flu Vaccine Exclusion Criteria: No Exclusion Criteria History of Present Illness Chief complaint: 3 MTH L KNEE INJECTION FU REQ TrishX Freda is a 49-year-old female who is been treated for cervical medial compartment arthritis for quite a time. She has been experiencing persistent pain in her left knee, which she describes as being localized to the inner aspect. Occasionally, she experiences sharp, stabbing pains in the lower part of her leg, which can radiate upwards, causing discomfort throughout her entire leg. She also reports that her right leg has begun to ache, possibly due to compensatory weight-bearing. Despite undergoing numerous treatments, including gel injections, physical therapy sessions, and various medications, her condition has not improved. She expresses a desire to resume an active lifestyle, including playing golf with her . She recalls a recent trip to [place] in 10/2024, during which she experienced significant knee pain after climbing to the top of a [place], which subsequently hindered her ability to walk for the remainder of the trip. She is concerned about her upcoming trip to [place] and her ability to participate in planned activities. Her family has suggested surgical intervention as a potential solution to restore her mobility. Personal History Red flag PMH: none Pain Pain level (0-10): 7 Pain duration: CONSTANT Pain location: inside (medial) and anterior Pain quality: sharp, dull and aching Pain timing: night, increases with activity and stairs Associated signs & symptoms: numbness Ambulatory data Ambulatory device: none Walking distance (minutes): 1 Treatments Number of previous injections: 4 Improvement with previous injections: No Number of Physical Therapy sessions: 0 Improvement with PT: No Improvement with NSAIDS: no Review of Systems Review of Systems: All systems negative unless otherwise noted in HPI.
[2025-09-12 13:24] VITALS: BP 138/70; PULSE 98; RESP 18; TEMP 36.8; O2SAT 98; BMI 38.3
== END 2025-09-12 13:20 | disposition home or self-care (01) ==
LOC: HODSRG 12:58
PROVIDERS: PCP Family Medicine; Referring Provider Family Medicine; Supervising Provider Orthopaedic Surgery Adult Reconstructive Orthopaedic Surgery; Visit Provider Orthopaedic Surgery Adult Reconstructive Orthopaedic Surgery
DX: M25.562 Pain in left knee (principal); S83.204D Other tear of unspecified meniscus, current injury, left knee, subsequent encounter; X58.XXXD Exposure to other specified factors, subsequent encounter; I10 Essential (primary) hypertension
CPT/HCPCS: 99213; G0463